=== PATIENT | male | born 1945 | race Caucasian/White ===

== ENCOUNTER 2016-12-14 08:09 | Emergency (ER) | payer BC ==
[2016-12-14 08:31] VITALS: BP 150/92; PULSE 55; RESP 18; TEMP 97.9; O2SAT 95
--- NOTE | 2016-12-14 08:58 | UCPHY ---
H & P Time Seen by Provider: 12/14/16 08:28 Patient Type: New HPI/ROS: 71-year-old male presents complaining right lower back pain radiating to his right groin right hip. He states it began yesterday while he was packing in [place] and has continued today. He denies numbness or tingling in his extremities he denies loss of bowel or bladder control. He does recall on Tuesday approximately 4 days ago that he fell while mowing the lawn however does not recall specific pain to his right hip at that time. The patient [place] days and is concerned about the pain. Review of systems General no fever no chills no weakness HEENT no eye pain no eye discharge. No eye redness, no sore throat Respiratory no cough, no shortness of breath Cardiac no chest pain, no peripheral edema GI no abdominal pain, no diarrhea, no constipation, no nausea, no vomiting no flank pain, no hematuria, no dysuria Musculoskeletal no myalgias, no joint pain, lower back pain right hip pain Heme no easy bruising, no easy bleeding Endo no polyuria, no polydipsia Skin no rashes, no pruritus Neuro no syncope, no dizziness, no headaches Psych is no suicidal ideation, no homicidal ideation Past Medical/Surgical History: Hypertension Social History: Alcohol socially, denies excessive drug use Smoking Status: Never smoked Physical Exam: 71-year-old male alert and oriented no acute distress nontoxic appearance afebrile HEENT atraumatic normocephalic, extraocular muscles intact, anicteric Oropharynx negative for erythema negative exudate, tolerating her own secretions Neck supple no meningismus Lungs clear to auscultation bilaterally Heart regular rate and rhythm without murmur rub or gallop Abdomen nondistended normoactive bowel sounds soft nontender Back no CVA tenderness, no step-offs, no spinal tenderness Patient has positive tenderness over the right SI joint, no rash no swelling no ecchymosis Tenderness radiates into the right buttock and around to right inguinal region There is no palpable swelling there is no palpable hernia He has full range of motion of his right hip his right knee his gait is intact Extremities no cyanosis clubbing or edema Neuro alert and oriented, no focal deficits Constitutional: Initial Vital Signs Temperature (C) 36.6 C 12/14/16 08:28 Heart Rate 55 L 12/14/16 08:28 Respiratory Rate 18 12/14/16 08:28 Blood Pressure 150/92 H 12/14/16 08:28 O2 Sat (%) 95 12/14/16 08:28 O2 Delivery Mode Room Air Allergies/Adverse Reactions: Penicillins Allergy (Verified 12/14/16 08:27) Home Medications: Medication Instructions Recorded Amlodipine Besylate 12/14/16 Hydrocodone/Acetaminophen [Brooker 1 - 2 tab PO Q6H PRN #16 tab 12/14/16 5/325 (*)] Metamucil 12/14/16 Omeprazole 12/14/16 Sulindac 12/14/16 Zolpidem Tartrate 12/14/16 methylPREDNISolone [Medrol Dose 1 each PO AD #1 ea 12/14/16 Harvinder] Medical Decision Making ED Course/Re-evaluation: Patient seen and evaluated for right-sided lower back pain radiating to his right lateral hip and right groin Physical exam significant for right SI joint tenderness to palpation as well as right buttock tenderness No rash no swelling no ecchymosis No weakness Impression Sacroiliac pain with radiation to groin Plan Medrol Dosepak Pain medication as needed Rest ice elevation Follow up with primary care physician upon return home Departure - Departure Disposition: Home, Routine, Self-Care Clinical Impression: Sacro-iliac pain Condition: Good Instructions: Sacroiliitis (ED) Additional Instructions: Follow-up with your primary care physician immediately upon return to [place] if you continue having this pain. If pain is dramatically worse, you are running a high fever or unable to walk, seek care at your closest emergency department Medrol Dosepak to decrease inflammation at sacroiliac joint. Rest, ice. May take ibuprofen as often as every 6-8 hours with food. Hydrocodone as needed for severe pain. Referrals: DR AYLIN [Other] - As per Instructions Prescriptions: Hydrocodone/Acetaminophen [Brooker 5/325 (*)] 1 - 2 tab PO Q6H PRN #16 tab PRN Reason: Pain, Moderate methylPREDNISolone [Medrol Dose Harvinder] 1 each PO AD #1 ea - PQRS PQRS Measurement: 134: Depression screening and followup, PRIME MD-PHQ2 (12 years and older) Over the last 2 weeks, how often have you been bothered by any of the following problems? 1. Feeling down, depressed, or hopeless? 2. Little interest or pleasure in doing things? Patient answered no to both 1 and 2 130: Documentation of medications. Reviewed all patient medications, doses, route and frequency. 226: Do you smoke? No. 47: 65 and older: Advanced care planning. Patient designates surrogate decision maker as spouse.. [Patient has advanced directive.] 51: 18 years old and older with diagnosis of COPD, spirometry performance. [Patient has no history of COPD 52: 18 years old and older with COPD and symptoms of COPD or FEV1<60% predicted prescribed a B Agonist. [Spirometry not performed; equipment not available.]
== END 2016-12-14 09:08 | disposition home or self-care (01) ==
LOC: CED 08:09
DX: M53.3 Sacrococcygeal disorders, not elsewhere classified (principal)
CPT/HCPCS: G0463-PO